=== PATIENT | female | born 1950 | race Caucasian/White ===

== ENCOUNTER → 2024-07-06 | Outpatient (CLI) | payer MEDICARE, MEDICAID, SELFPAY ==
[2024-07-05 15:31] LABS: Basophils % (Auto) 0 % (0-2.5); Eosinophils # (Auto) 0.1 Thou/mm3 (0.0-0.5); Eosinophils % (Auto) 1 % (0-10); Hematocrit 38.6 % (36.0-46.0); Immature Granulocytes % (Auto) 0 % (0-0); Immature Granulocytes Auto 0.02 Thou/mm3 (0.00-0.00); Lymphocytes # (Auto) 1.2 Thou/mm3 (1.0-4.8); Lymphocytes % (Auto) 18 % (10-50); Mean Corpuscular HGB Conc 33.7 g/dl (31.0-37.0); Mean Corpuscular Hemoglobin 29.1 pg (25.0-35.0); Mean Corpuscular Volume 87 fL (80-100); Monocytes # (Auto) 0.5 Thou/mm3 (0.0-0.8); Monocytes % (Auto) 8 % (0-12); Neutrophils # (Auto) 4.5 Thou/mm3 (1.8-7.7); Neutrophils % (Auto) 72 % (37-80); Nucleated Red Blood Cell % 0 /100 WBC (0); Platelet Count 225 Thou/mm3 (140-440); RDW Standard Deviation 40.7 fL (36.4-46.3); Red Blood Count 4.46 Miln/mm3 (4.00-5.20); White Blood Count 6.2 Thou/mm3 (3.6-11.0)
[2024-07-05 15:44] LABS: Partial Thromboplastin Time 24.5 Seconds (22.0-36.0); Prothrombin Time 10.9 Seconds (9.0-12.2)
--- NOTE | 2024-07-06 09:30 | XR_ITS ---
Examinations: Ultrasound-guided percutaneous breast biopsy, right breast 6:00 nodule Right breast sonography limited INDICATIONS: BI-RADS 4 suspicious nodule 6:00 position right breast on right breast sonogram February 04, 2024. Exam date and time: July 06, 2024 1002 hours. Informed consent provided. Technique: A timeout was completed verifying correct patient, procedure, site, positioning, and special equipment if applicable Informed consent provided. The patient was placed in a supine position for the breast biopsy. Sonographic images of the breast were performed for localization of the suspicious nodule The patient's breast was prepped and draped in sterile fashion. Maximum sterile barrier technique, hand hygiene, ultrasound sterile technique 1% lidocaine was used to anesthetize the skin and breast adjacent to the suspicious nodule. Utilizing ultrasonographic guidance, 8 core biopsies were obtained of the suspicious nodule utilizing an 18-gauge BioPince needle. The specimens appears satisfactory. US guided breast biopsy marker placement. Estimated blood loss 3 cc. The patient tolerated the procedure well and there were no complications. Impression: Successful ultrasound-guided percutaneous breast biopsy, right breast 6:00 nodule. Ultrasound guided breast biopsy marker placement.
--- NOTE | 2024-07-06 09:30 | XR_ITS ---
Examinations: Ultrasound-guided percutaneous breast biopsy, left breast 9:00 nodule Left breast sonography limited INDICATIONS: BI-RADS 4 suspicious mass 9:00 position left breast on left breast sonogram February 04, 2024. Exam date and time: July 06, 2024 1007 hours. Informed consent provided. Technique: A timeout was completed verifying correct patient, procedure, site, positioning, and special equipment if applicable Informed consent provided. The patient was placed in a supine position for the breast biopsy. Sonographic images of the breast were performed for localization of the suspicious nodule The patient's breast was prepped and draped in sterile fashion. Maximum sterile barrier technique, hand hygiene, ultrasound sterile technique 1% lidocaine was used to anesthetize the skin and breast adjacent to the suspicious nodule. Utilizing ultrasonographic guidance, 8 core biopsies were obtained of the suspicious nodule utilizing an 18-gauge BioPince needle. The specimens appears satisfactory. US guided breast biopsy marker placement. Estimated blood loss 3 cc. The patient tolerated the procedure well and there were no complications. Impression: Successful ultrasound-guided percutaneous breast biopsy, left breast 9:00 nodule. Ultrasound guided breast biopsy marker placement.
--- NOTE | 2024-07-06 09:30 | XR_ITS ---
Examinations: Ultrasound-guided percutaneous left axillary lymph node biopsy Left axillary sonography limited INDICATIONS: Suspicious left axillary lymph node on breast sonogram February 04, 2024 Exam date and time: July 06, 2024 1011 hours. Informed consent provided. Technique: A timeout was completed verifying correct patient, procedure, site, positioning, and special equipment if applicable Informed consent provided. The patient was placed in a supine position for the amy axillary biopsy. Sonographic images of the left axilla were performed for localization of the suspicious nodule The patient's breast was prepped and draped in sterile fashion. Maximum sterile barrier technique, hand hygiene, ultrasound sterile technique 1% lidocaine was used to anesthetize the skin and breast adjacent to the suspicious nodule. Utilizing ultrasonographic guidance, 8 core biopsies were obtained of the suspicious lymph node utilizing an 18-gauge BioPince needle. The specimens appears satisfactory. \ Estimated blood loss 3 cc. The patient tolerated the procedure well and there were no complications. Impression: Successful ultrasound-guided percutaneous left axillary lymph node biopsy .
== END | disposition home or self-care (01) ==
LOC: SDIM 09:01 → SIRX 09:50
PROVIDERS: Radiology Diagnostic Radiology; PCP Physician Assistant Medical; Referring Provider Physician Assistant Medical; Visit Provider Physician Assistant Medical
DX: C50.812 Malignant neoplasm of overlapping sites of left female breast (principal); C50.811 Malignant neoplasm of overlapping sites of right female breast; Z17.21 Progesterone receptor positive status; Z17.0 Estrogen receptor positive status [ER+]; Z01.812 Encounter for preprocedural laboratory examination
CPT/HCPCS: 19083; 19084 ×2; 36415; 85025; 85610; 85730; A4648

== ENCOUNTER → 2024-08-03 | Outpatient (CLI) | payer MEDICARE, MEDICAID, SELFPAY ==
--- NOTE | 2024-08-03 13:00 | XR_ITS ---
Examination: Bone densitometry Date and time of exam:August 03, 2024 1322 hours INDICATIONS: Menopause age 56 vitamin D 2 months Technique: Lumbar spine and hip total bone mineralization values of an calculated. Peak reference and age match control results have been displayed. Findings: Lumbar spine total bone mineralization is1.244 gm/cm2. This is 1.8 standard deviations above peak reference. This is 4.1 standard deviations above age-matched controls. Hip total bone mineralization is 0.900 gm/cm2 This is 0.3 standard deviations below peak reference. This is 1.3 standard deviations above age-matched controls Impression: There is normal mineralization based on lumbar spine measurements. There is osteopenia based on hip measurements Lumbar mineralization is increased 9.0% compared with February 22, 2020 Hip mineralization is decreased 7.7% compared with February 22, 2020
== END | disposition home or self-care (01) ==
PROVIDERS: Referring Provider Physician Assistant Medical; Visit Provider Physician Assistant Medical
DX: M85.89 Other specified disorders of bone density and structure, multiple sites (principal)
CPT/HCPCS: 77080

== ENCOUNTER 2024-08-05 12:52 | Outpatient (RCR) | payer MEDICARE, MEDICAID, SELFPAY ==
--- NOTE | 2024-08-05 14:07 | CTCCONSULT_ITS ---
[facility] [address] [place], [place] [address] Consultation Note Date: 08/05/2024 MR#: [id number] Name: KASHMIR STEWART : 1950 Dx: C50.212 Malignant neoplasm of upper-inner quadrant of left female breast Attending physician. Sierra Bender PA-C Reason for consultation. Patient with bilateral synchronous right and left breast CA referred to the cancer center. History of Present Illness: Patient is a 73-year-old lady with bilateral mammography 02/04/2024 revealing heterogeneous dense breast however suspicious mass noted in the right breast at 6:00 and in the 9:00 of the left breast. Biopsy of both sites July 06, 2024 revealed invasive ductal carcinoma 0.5 cm in the right and 0.7 cm on the left. There were both ER/VA positive and HER2/marium not overexpressed. Ultrasound biopsy of the left axilla was negative for malignancy. MRI of the breasts reportedly has been ordered for end of this month and patient now referred to the cancer treatment center. Past Medical History: Hypertension prior right knee surgery vascular surgery adult onset diabetes mellitus history of chickenpox bronchitis asthma Meds. Haloperidol 50 mg once a day Singulair 10 mg daily Paxil 20 mg daily Lipitor 10 mg Seroquel 300 mg Allergies to penicillin Family history. Denies knowledge of cancer in family. Social History: Patient retired disabled Review of Systems: Has experienced anxiety cold heat intolerance cough easy bruising hayfever allergy memory loss recent fever sleep problem unexplained weight loss or gain Physical Exam: General: Adequate nourished appearing lady no acute distress HEENT: Atraumatic no cephalic extraocular is intact no oral lesions no cervical or supraclavicular adenopathy CV: No discrete axillary nodes felt; no definite breast masses felt. ABD: Soft no organomegaly or tenderness EXT: No signs of clubbing or edema Assessment: 1. Synchronous bilateral breast CA, both T1 size receptor positive HER2/marium not overexpressed. 2. MRI breasts reportedly have been ordered and scheduled for later this month. 3. Will do genetic testing considering the bilateral breast CA; unknown if any family members ever had breast or any other cancers. 4. Will order PET scan 5. Scheduled to see Dr. Marin medical oncologist. 6. Thank you much for allowing me to evaluate this patient. Cc: Sierra Bender PA-C [facility] Electronically signed by: Jann Chase MD, MONICO 08/05/2024 2:05 PM
== END 2024-09-04 23:59 | disposition home or self-care (01) ==
LOC: SCTC 12:52
PROVIDERS: PCP Physician Assistant Medical; Referring Provider Physician Assistant Medical; Visit Provider Radiology Therapeutic Radiology
DX: C50.812 Malignant neoplasm of overlapping sites of left female breast (principal); C50.811 Malignant neoplasm of overlapping sites of right female breast; Z17.0 Estrogen receptor positive status [ER+]; Z17.21 Progesterone receptor positive status; Z17.32 Human epidermal growth factor receptor 2 negative status
CPT/HCPCS: 99213; G0463

== ENCOUNTER → 2024-08-12 | Outpatient (CLI) | payer MEDICARE, MEDICAID, SELFPAY ==
[2024-08-12 09:11] LABS: Misc Send Out* See Sep Rpt
== END | disposition home or self-care (01) ==
PROVIDERS: PCP Physician Assistant Medical; Referring Provider Radiology Therapeutic Radiology; Visit Provider Radiology Therapeutic Radiology
DX: C50.111 Malignant neoplasm of central portion of right female breast (principal); C50.212 Malignant neoplasm of upper-inner quadrant of left female breast

== ENCOUNTER 2024-09-13 08:32 | Outpatient (RCR) | payer MEDICARE, MEDICAID, SELFPAY ==
--- NOTE | 2024-09-19 22:00 | CTCCONSULT_ITS ---
Patient: KASHMIR CORDOVA : 1950 MR#: [id number] Page 2 of 3 CONSULTATION NOTE DATE OF CONSULTATION: 09/13/2024 NAME: KASHMIR CORDOVA ACCOUNT: [id number] : 1950 AGE: 74 REFERRING PHYSICIAN: Romario Marin MD PRIMARY PHYSICIAN: Romario Marin MD [place], a female patient with bilateral breast cancer diagnosed in January 2024, presented for follow-up without having received treatment yet. Biopsies confirmed invasive ductal carcinoma in both breasts (right: 0.5cm, ER+, HER2 1+; left: 0.7cm, ER+, HER2 0) with negative lymph nodes. The patient reported short- term memory issues and takes unspecified mental health medication nightly. Treatment plan includes immediate hormone-blocking medication, repeat ultrasound to reassess tumor sizes, referral to Dr. King for bilateral breast-conserving surgery, and post-surgical radiation therapy. Subjective: Chief Complaint Follow-up for bilateral breast cancer diagnosed in January 2024, no treatment received yet History of Present Illness Kashmir Cordova presents to the oncology clinic for follow-up of bilateral breast cancer diagnosed in January 2024. The patient has not yet undergone any surgical intervention for her condition. In January 2024, a mammogram revealed suspicious findings for malignancy in both breasts. Subsequent biopsies confirmed invasive ductal carcinoma in both breasts: a 0.5 cm tumor in the right breast and a 0.7 cm tumor in the left breast. Both tumors were estrogen receptor-positive (ER+), but the right breast tumor was HER2 1+ while the left breast tumor was HER2 0. Lymph node biopsies on both sides were negative. The patient expresses a preference for breast-conserving surgery followed by radiation therapy rather than mastectomy. She reports some issues with short- term memory, stating, When I can remember, within a few minutes later, I forget. The patient takes medication at night for mental health and sees a doctor in [place] for this condition. No information was provided about changes in overall health status, current symptoms, or impact on daily functioning since the initial diagnosis. The patient has not yet started any cancer treatment, and there is concern that the tumors may have grown in the six months since diagnosis. Medications and Supplements - Unspecified mental health medication - Taken at night Review of Systems Neurological: Positive for short-term memory issues. Psychiatric: Positive for taking medication for mental health. Other: Positive for hot flashes. Objective: Laboratory, Imaging, and Diagnostic Test Results - Date: January 2024 - Mammogram: Suspicious for malignancy in left and right breast - Breast ultrasound with biopsy: - Right breast: Invasive ductal carcinoma, 0.5 cm, ER-positive, HER2 1+ - Left breast: Invasive ductal carcinoma, 0.7 cm, ER-positive, HER2 0 - Lymph node biopsies: Negative bilaterally Assessment and Plan: Kashmir Cordova, female patient, presents with bilateral breast cancer diagnosed in January 2024, now requiring treatment initiation and surgical intervention. Bilateral breast cancer Assessment: Patient was diagnosed with bilateral breast cancer in January 2024 via mammogram and subsequent biopsies. Right breast shows a 0.5 cm invasive ductal carcinoma, ER-positive, HER2 1+. Left breast has a 0.7 cm ER-positive tumor, HER2 negative. Lymph node biopsies were negative bilaterally. These are separate primary cancers, both small but potentially grown since January due to delayed treatment initiation. Plan: - Start hormone-blocking medication immediately to prevent further tumor growth - Repeat breast ultrasound bilaterally to reassess current tumor sizes - Refer to Dr. King, breast surgeon in [place], for bilateral breast-conserving surgery - Plan for post-surgical radiation therapy to both breasts - Educate patient on medication: - Take one tablet daily with water - If dose missed, resume next day - Potential side effects: hot flashes, menopause-like symptoms (may last a few days) - Follow-up appointment in 3-4 weeks - Anticipate radiation therapy to begin 3 weeks post-surgery Memory issues Assessment: Patient reports difficulty with short-term memory, stating When I can remember, within a few minutes later, I forget. This may impact medication adherence and retention of medical information. Plan: - Note: Patient takes unspecified pills at night for mental health - Patient sees a doctor in [place] for mental health management RETURN TO CLINIC: 4 weeks BILLING AND COMPLIANCE: I reviewed external records from providers outside my specialty as summarized above. I spent a total of 50 minutes on this patient?s care on the day of their visit excluding time spent related to any billed procedures. This time includes time spent with the patient as well as time spent documenting in the medical record, reviewing patients records and tests, obtaining history, placing orders, communicating with other healthcare professionals, counseling the patient, family or caregiver, and/or care coordination for the diagnoses above. Electronically Signed by: Romario Marin MD T: 9:58 PM CC: PCP: oRmario Marin Referring: Romario Marin This document was completed utilizing speech recognition software. Grammatical errors, random word insertions, pronoun errors, and incomplete sentences are an occasional consequence of this system due to software limitations, ambient noise, and hardware issues. Any formal questions or concerns about the content, text or information contained within the body of this dictation should be directly addressed to the provider for clarification.
== END 2024-10-04 23:59 | disposition home or self-care (01) ==
LOC: SCTC 08:32
PROVIDERS: PCP Physician Assistant Medical; Referring Provider Internal Medicine Hematology & Oncology; Visit Provider Internal Medicine Hematology & Oncology
DX: C50.811 Malignant neoplasm of overlapping sites of right female breast (principal); C50.812 Malignant neoplasm of overlapping sites of left female breast; Z17.0 Estrogen receptor positive status [ER+]; Z17.21 Progesterone receptor positive status; Z17.32 Human epidermal growth factor receptor 2 negative status; R41.3 Other amnesia
CPT/HCPCS: 99213; G0463

== ENCOUNTER → 2024-09-14 | Outpatient (CLI) | payer MEDICARE, MEDICAID, SELFPAY ==
--- NOTE | 2024-09-14 10:15 | XR_ITS ---
EXAMINATION: PET/CT FUSION SKULL TO THIGH EXAM DATE AND TIME: September 14, 2024 1108 hours INDICATIONS: Diagnosis breast cancer, staging prior to treatment, biopsy 9:00 nodule left breast on July 06, 2024 CTDI:vol (mGy) 6.55 DLP: (mGycm) 598.28 PROCEDURE: 16.6 mCi FDG was administered intravenously To allow for distribution and uptake of radiotracer, the patient was allowed to rest quietly in a shielded room. Imaging was performed on an integrated 16-slice PET/CT scanner, with scanning from the skull base to the mid thigh. Serum blood glucose at the time of the injection was measured 116 mg/dL. CT scanning was performed without oral or intravenous contrast material. FINDINGS: Head and Neck: There is no amy hypermetabolism in the neck. The visualized portions of the brain are normal in appearance on CT. Chest: Weakly hypermetabolic 8mm nodule with breast marker left breast axial image 115 12 mm non hypermetabolic left axillary lymph node Abdomen and Pelvis: There is no amy hypermetabolism in retroperitoneal or pelvic chains. The spleen is normal in size and FDG avidity. Musculoskeletal: Marrow uptake is within normal range. IMPRESSION: Weakly hypermetabolic 8mm nodule with breast biopsy marker left breast 12 mm non hypermetabolic left axillary lymph node
== END | disposition home or self-care (01) ==
LOC: CDIM 09:57
PROVIDERS: Referring Provider Radiology Therapeutic Radiology; Visit Provider Radiology Therapeutic Radiology
DX: C50.212 Malignant neoplasm of upper-inner quadrant of left female breast (principal); C50.111 Malignant neoplasm of central portion of right female breast
CPT/HCPCS: 78815; A9552

== ENCOUNTER → 2024-09-15 | Outpatient (CLI) | payer MEDICARE, MEDICAID, SELFPAY ==
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
--- NOTE | 2024-09-15 12:30 | XR_ITS ---
MRI shoulder, left, without contrast. Date and time: September 15, 2024 1530 hours Technique: Multiple axial, sagittal and coronal sections of the shoulder have been obtained. Siemens high-resolution 1.5 Steph MRI scanner is utilized. Axial fat-suppressed sections, TR 2350, TE 18 T2-weighted coronal fat-saturated images, TR 3500, TE 7100 T1-weighted coronal images, TR 500, TE 15 T2-weighted sagittal fat-saturated images, TR 3500, TE 57 T1-weighted sagittal sections, TR 504, TE 13. Findings: Supraspinatus tendon insertion is intact. Infraspinatus tendon insertion is intact. Subscapularis insertion is intact. Subscapularis bursa is not seen. Long head of the biceps is in the bicipital groove. No definite tear of the biceps superior labral anchor is seen. Retraction of the musculotendinous junction of the rotator cuff is not seen . Tendinosis pattern is moderate. Distance between the acromium and humeral head is obtained mm Atrophy of the supraspinatus muscle is severe. Atrophy of the infraspinatus muscle is moderate. Sagittal sections demonstrate a horizontal acromion. Acromioclavicular joint demonstrates mild osteoarthritis . Osacromiale is not identified. Advanced osteoarthritis glenohumeral joint with significant shoulder effusion. Fraying and irregularity anterior superior posterior labral margins Bony glenoid fossa on the sagittal sections does not demonstrate osseous defect. Occult fracture or area of avascular necrosis is not seen. Acromioclavicular joint separation is not visible. Defect in the posterolateral margin of the humeral head is not seen Impression: Advanced osteoarthritis glenohumeral joint Fraying and irregularity anterior superior posterior labral margins
== END | disposition home or self-care (01) ==
LOC: SMRI 12:01
PROVIDERS: PCP Physician Assistant Medical; Referring Provider Physician Assistant Medical; Visit Provider Physician Assistant Medical
DX: M19.012 Primary osteoarthritis, left shoulder (principal); Z01.818 Encounter for other preprocedural examination; Z87.828 Personal history of other (healed) physical injury and trauma
CPT/HCPCS: 70250; 73221

== ENCOUNTER → 2024-09-24 | Outpatient (CLI) | payer MEDICARE, MEDICAID, SELFPAY ==
[2024-09-24 16:49] LABS: Basophils % (Auto) 0 % (0-2.5); Eosinophils # (Auto) 0.1 Thou/mm3 (0.0-0.5); Eosinophils % (Auto) 2 % (0-10); Hematocrit 39.3 % (36.0-46.0); Immature Granulocytes % (Auto) 0 % (0-0); Immature Granulocytes Auto 0.01 Thou/mm3 (0.00-0.00); Lymphocytes # (Auto) 1.5 Thou/mm3 (1.0-4.8); Lymphocytes % (Auto) 22 % (10-50); Mean Corpuscular HGB Conc 33.1 g/dl (31.0-37.0); Mean Corpuscular Hemoglobin 28.9 pg (25.0-35.0); Mean Corpuscular Volume 87 fL (80-100); Monocytes # (Auto) 0.6 Thou/mm3 (0.0-0.8); Monocytes % (Auto) 9 % (0-12); Neutrophils # (Auto) 4.6 Thou/mm3 (1.8-7.7); Neutrophils % (Auto) 68 % (37-80); Nucleated Red Blood Cell % 0 /100 WBC (0); Platelet Count 253 Thou/mm3 (140-440); RDW Standard Deviation 39.9 fL (36.4-46.3); White Blood Count 6.8 Thou/mm3 (3.6-11.0)
[2024-09-24 17:09] LABS: Alanine Aminotransferase 20 U/L (10-49); Albumin, Serum 4.1 gm/dL (3.4-4.8); Albumin/Globulin Ratio 1.8 (1.2-2.2); Alkaline Phosphatase 89 U/L (46-116); Anion Gap 6 (7-16); Aspartate Amino Transferase 18 U/L (0-34); BUN/Creatinine Ratio 9 Ratio (12-20); Bilirubin,Total 0.6 mg/dL (0.3-1.2); Blood Urea Nitrogen 7 mg/dL (9-23); Calcium 9.5 mg/dL (8.3-10.6); Calcium (Corrected) 9.5 mg/dL (8.5-10.1); Carbon Dioxide 29.1 mMol/L (20.0-31.0); Chloride 104 mMol/L (98-107); Creatinine (Component) 0.8 mg/dL (0.6-1.3); Globulin 2.3 gm/dL (2.3-3.5); Glucose 94 mg/dL (74-106); Osmolality,Calculated 275 (275-295); Potassium 3.8 mMol/L (3.4-5.1); Sodium 139 mMol/L (136-145); Total Protein 6.4 gm/dL (5.7-8.2); eGFR > 60 See Note
== END | disposition home or self-care (01) ==
LOC: COPL 15:21 → SCTO 15:26
PROVIDERS: PCP Physician Assistant Medical; Referring Provider Internal Medicine Hematology & Oncology; Visit Provider Internal Medicine Hematology & Oncology
DX: C50.212 Malignant neoplasm of upper-inner quadrant of left female breast (principal); C50.111 Malignant neoplasm of central portion of right female breast
CPT/HCPCS: 36415; 80053; 85025

== ENCOUNTER → 2024-09-29 | Outpatient (CLI) | payer MEDICARE, MEDICAID, SELFPAY ==
[2024-09-29 09:46] LABS: Misc Send Out* See Sep Rpt
== END | disposition home or self-care (01) ==
PROVIDERS: PCP Physician Assistant Medical; Referring Provider Radiology Therapeutic Radiology; Visit Provider Radiology Therapeutic Radiology
DX: C50.212 Malignant neoplasm of upper-inner quadrant of left female breast (principal); C50.111 Malignant neoplasm of central portion of right female breast

== ENCOUNTER 2024-10-25 10:43 | Outpatient (RCR) | payer MEDICARE, MEDICAID, SELFPAY | END 2024-11-04 23:59 | disposition home or self-care (01) | LOC: SCTC 10:43 | PROVIDERS: PCP Physician Assistant Medical; Referring Provider Physician Assistant Medical; Visit Provider Internal Medicine Hematology & Oncology | DX: C50.812 Malignant neoplasm of overlapping sites of left female breast (principal); C50.811 Malignant neoplasm of overlapping sites of right female breast; Z17.0 Estrogen receptor positive status [ER+]; Z17.21 Progesterone receptor positive status; Z17.32 Human epidermal growth factor receptor 2 negative status; R41.3 Other amnesia | CPT/HCPCS: 99424; 99425 ==

== ENCOUNTER → 2024-10-29 | Outpatient (CLI) | payer MEDICARE, MEDICAID, SELFPAY ==
[2024-10-29 17:34] LABS: Basophils # (Auto) 0.0 Thou/mm3 (0.0-0.2); Basophils % (Auto) 0 % (0-2.5); Eosinophils # (Auto) 0.0 Thou/mm3 (0.0-0.5); Eosinophils % (Auto) 0 % (0-10); Hematocrit 39.2 % (36.0-46.0); Hemoglobin 12.8 g/dL (12.0-16.0); Immature Granulocytes Auto 0.03 Thou/mm3 (0.00-0.00); Lymphocytes # (Auto) 1.3 Thou/mm3 (1.0-4.8); Lymphocytes % (Auto) 13 % (10-50); Mean Corpuscular HGB Conc 32.7 g/dl (31.0-37.0); Mean Corpuscular Hemoglobin 28.6 pg (25.0-35.0); Mean Corpuscular Volume 88 fL (80-100); Monocytes # (Auto) 0.9 Thou/mm3 (0.0-0.8); Monocytes % (Auto) 9 % (0-12); Neutrophils # (Auto) 7.9 Thou/mm3 (1.8-7.7); Neutrophils % (Auto) 78 % (37-80); Nucleated Red Blood Cell # 0.00 Thou/mm3 (0.00-0.00); Nucleated Red Blood Cell % 0 /100 WBC (0); Platelet Count 259 Thou/mm3 (140-440); RDW Standard Deviation 40.4 fL (36.4-46.3); Red Blood Count 4.47 Miln/mm3 (4.00-5.20); White Blood Count 10.2 Thou/mm3 (3.6-11.0)
[2024-10-29 17:55] LABS: Alanine Aminotransferase 25 U/L (10-49); Albumin, Serum 3.7 gm/dL (3.4-4.8); Albumin/Globulin Ratio 1.8 (1.2-2.2); Alkaline Phosphatase 82 U/L (46-116); Anion Gap 8 (7-16); Aspartate Amino Transferase 22 U/L (0-34); BUN/Creatinine Ratio 22 Ratio (12-20); Bilirubin,Total 0.5 mg/dL (0.3-1.2); Blood Urea Nitrogen 24 mg/dL (9-23); Calcium 9.6 mg/dL (8.3-10.6); Calcium (Corrected) 9.8 mg/dL (8.5-10.1); Carbon Dioxide 30.3 mMol/L (20.0-31.0); Chloride 103 mMol/L (98-107); Creatinine (Component) 1.1 mg/dL (0.6-1.3); Globulin 2.1 gm/dL (2.3-3.5); Glucose 155 mg/dL (74-106); Osmolality,Calculated 288 (275-295); Potassium 4.2 mMol/L (3.4-5.1); Sodium 141 mMol/L (136-145); Total Protein 5.8 gm/dL (5.7-8.2); eGFR 53 See Note
== END | disposition home or self-care (01) ==
LOC: SCTO 16:35
PROVIDERS: PCP Physician Assistant Medical; Referring Provider Internal Medicine Hematology & Oncology; Visit Provider Internal Medicine Hematology & Oncology
DX: C50.212 Malignant neoplasm of upper-inner quadrant of left female breast (principal); C50.111 Malignant neoplasm of central portion of right female breast
CPT/HCPCS: 36415; 80053; 85025

== ENCOUNTER 2024-12-09 13:49 | Outpatient (RCR) | payer MEDICARE, MEDICAID, SELFPAY ==
--- NOTE | 2024-12-13 01:07 | CTCFLWUP_ITS ---
Patient: KASHMIR STEWART : 1950 Page 4 of 4 FOLLOW UP NOTE DATE OF SERVICE: 12/09/2024 NAME: KASHMIR STEWART ACCOUNT: [id number] : 1950 AGE: 74 INTERVAL HISTORY: Patient underwent surgery on 11/29/2024. Patient had bilateral mastectomy. Here for follow-up ONCOLOGY HISTORY: DIAGNOSIS: Malignant neoplasm of upper-inner quadrant of left female breast [ICD10] C50.212; Malignant neoplasm of central portion of right female breast [ICD10] C50.111 DATE OF DIAGNOSIS: 07/25/2024 Initially found to have cancer in both breast but later Only in left breast cancer STAGE/TNM: Stage I T1 cN0 M0 in the left breast ER positive HER2 negative Right breast no residual tumor T0 N0 M0 initially found to be ER positive HER2 negative TREATMENT HISTORY: Care?Plan Start?Date Cycle Day Intent HISTORY OF PRESENT ILLNESS: [place], a female patient with bilateral breast cancer diagnosed in January 2024, presented for follow-up without having received treatment yet. Biopsies confirmed invasive ductal carcinoma in both breasts (right: 0.5cm, ER+, HER2 1+; left: 0.7cm, ER+, HER2 0) with negative lymph nodes. The patient reported short-term memory issues and takes unspecified mental health medication nightly. Treatment plan includes immediate hormone-blocking medication, and surgery with Dr. King. Patient had surgery with bilateral mastectomy and was found to have residual tumor only in the left breast and no cancer was found in the right breast. Lymph nodes in both the right and left axilla were negative OTHER MEDICAL HISTORY/CONDITIONS: Right and left breast invasive ductal carcinoma - dx 07/06/24 HTN Hyperlipidemia Depression T?and?A?-?as?child FAMILY HISTORY: Patient?denies?family?cancer?history. 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 Arimidex - 1 mg 1 tab Daily 2. haloperidoL - 5 mg 3 tab Daily 3. Lipitor - 10 mg 1 tab Daily 4. Paxil - 20 mg 1 tab Daily 5. Seroquel XR - 200 mg 2 tab Daily 6. Singulair - 10 mg 1 tab Daily Medications Last Reconciled by Juliana Gutierrez MA on 12/09/2024 ALLERGIES: Penicillins REVIEW OF SYSTEMS: A complete 14-point review of systems was performed and is negative except as noted in interval history. PHYSICAL EXAMINATION: VITAL SIGNS: Temperature?98, B/P?147/86, Oxygen?Saturation?98% Weight?204?lbs PAIN: 0 - No pain ECOG Performance Status: 0 - Asymptomatic and fully active GENERAL APPEARANCE: Appears well, in no apparent distress, appropriately interactive. HEENT: Normocephalic, no temporal wasting, normal conjunctiva, no scleral icterus, normal hearing, lips without lesions, neck normal range of motion. CARDIOVASCULAR: Not assessed. PULMONARY: Normal respiratory effort, no respiratory distress or use of accessory muscles, speaking in full sentences, no tachypnea. EXTREMITIES: No pedal edema or cyanosis. SKIN: Normal skin appearance. NEUROLOGIC: Alert and oriented x4. PSHYCHIATRIC: Appropriate affect, mood normal, behavior normal, intact thought and speech. LABORATORY DATA: I have personally reviewed and interpreted each of the patient?s relevant lab tests, abnormal findings are below: Date 09/24/24 10/29/24 ??WHITE?BLOOD?COUNT?(Thou/mm3) 6.8 10.2 ??RED?BLOOD?COUNT?(Miln/mm3) 4.50 4.47 ??HEMOGLOBIN?(gm/dl) 13.0 12.8 ??HEMATOCRIT?(%) 39.3 39.2 ??PLATELET?COUNT?(Thou/mm3) 253 259 ??NEUTROPHILS?%,?AUTO?(%) 68 78 ??LYMPH?%,?AUTO?(%) 22 13 ??NEUTROPHILS,?AUTO?(Thou/mm3) 4.6 7.9?H ??GLUCOSE,RANDOM?(mg/dL) 94 155?H ??BLOOD?UREA?NITROGEN?(mg/dL) 7?L 24?H ??CREATININE?(mg/dL) 0.80 1.10 ??SODIUM?(mmol/L) 139 141 ??POTASSIUM?(mmol/L) 3.8 4.2 ??CHLORIDE?(mmol/L) 104 103 ??CrCl?(CandG)?(ml/min) 69.52 50.56 ??AST/SGOT?(Unit/L) 18 22 ??ALT/SGPT?(Unit/L) 20 25 ??ALKALINE?PHOSPHATASE?(Unit/L) 89 82 ??BILIRUBIN,?TOTAL?(mg/dL) 0.6 0.5 ??PROTEIN?TOTAL?(gm/dl) 6.4 5.8 ??ALBUMIN,?SERUM?(gm/dl) 4.1 3.7 ??GLOBULIN?(gm/dl) 2.3 2.1?L ??ALBUMIN/GLOBULIN?RATIO 1.8 1.8 ??CALCIUM,?SERUM?(mg/dL) 9.5 9.6 ??CALCIUM?SERUM?(CORRECTED)?(mg/dL) 9.5 9.8 ASSESSMENT/PLAN: Patient was diagnosed with bilateral breast cancer in January 2024 via mammogram and subsequent biopsies. Right breast shows a 0.5 cm invasive ductal carcinoma, ER-positive, HER2 1+. Left breast has a 0.7 cm ER-positive tumor, HER2 negative. Lymph node biopsies were negative bilaterally. These are separate primary cancers, both small but potentially grown since January due to delayed treatment initiation. Patient has been on anastrozole and doing well Patient had bilateral mastectomy and found to have residual tumor only in the left breast Continue hormone blocking therapy for at least 5 to 7 years No role of chemotherapy Patient have no involvement of lymph node and tumor was very small so no role of radiation Continue anastrozole memory issues Assessment: Patient reports difficulty with short-term memory, stating When I can remember, within a few minutes later, I forget. This may impact medication adherence and retention of medical information. Plan: - Note: Patient takes unspecified pills at night for mental health - Patient sees a doctor in [place] for mental health management ORDERS: Order # Description [id number] Follow Up 6 Month + Comprehensive Metabolic Panel - 12 + CBC with Auto Diff + CA 15-3 + RETURN TO CLINIC: I reviewed the diagnosis, prognosis, and recommended treatment/procedure options with the patient (and/or their legal applications sales representative), including the potential benefits, risks, side effects and alternative therapies. We also discussed the option of no treatment and the possibility of clinical trial participation, if applicable. All questions were addressed, and they demonstrated understanding. They provided informed consent to proceed with the proposed plan of care. BILLING AND COMPLIANCE: I reviewed external records from providers outside my specialty as summarized above. I spent a total of 50 minutes on this patient?s care on the day of their visit excluding time spent related to any billed procedures. This time includes time spent with the patient as well as time spent documenting in the medical record, reviewing patients records and tests, obtaining history, placing orders, communicating with other healthcare professionals, counseling the patient, family or caregiver, and/or care coordination for the diagnoses above. Electronically Signed by: {Object.Sanct_ID*PnP.NameFL@M}, {Object.Sanct_ID*PnP.Suffix@U} D: {Object.Sanct_Date} T: {Object.Sanct_Time} CC: PCP: Sierra Bender Referring: Sierra Bender This document was completed utilizing speech recognition software. Grammatical errors, random word insertions, pronoun errors, and incomplete sentences are an occasional consequence of this system due to software limitations, ambient noise, and hardware issues. Any formal questions or concerns about the content, text or information contained within the body of this dictation should be directly addressed to the provider for clarification.
== END 2025-01-04 23:59 | disposition home or self-care (01) ==
LOC: SCTC 13:49
PROVIDERS: PCP Physician Assistant Medical; Referring Provider Physician Assistant Medical; Visit Provider Internal Medicine Hematology & Oncology
DX: C50.812 Malignant neoplasm of overlapping sites of left female breast (principal); C50.811 Malignant neoplasm of overlapping sites of right female breast; Z17.0 Estrogen receptor positive status [ER+]; Z17.21 Progesterone receptor positive status; Z17.32 Human epidermal growth factor receptor 2 negative status; Z90.13 Acquired absence of bilateral breasts and nipples; Z79.811 Long term (current) use of aromatase inhibitors
CPT/HCPCS: 99212; G0463

== ENCOUNTER → 2025-01-28 | Outpatient (CLI) | payer MEDICARE, MEDICAID, SELFPAY ==
[2025-01-28 14:44] LABS: Basophils # (Auto) 0.0 Thou/mm3 (0.0-0.2); Basophils % (Auto) 1 % (0-2.5); Eosinophils # (Auto) 0.1 Thou/mm3 (0.0-0.5); Eosinophils % (Auto) 3 % (0-10); Hematocrit 37.9 % (36.0-46.0); Hemoglobin 12.6 g/dL (12.0-16.0); Immature Granulocytes Auto 0.01 Thou/mm3 (0.00-0.00); Lymphocytes # (Auto) 1.0 Thou/mm3 (1.0-4.8); Lymphocytes % (Auto) 24 % (10-50); Mean Corpuscular HGB Conc 33.2 g/dl (31.0-37.0); Mean Corpuscular Hemoglobin 29.1 pg (25.0-35.0); Mean Corpuscular Volume 88 fL (80-100); Monocytes # (Auto) 0.5 Thou/mm3 (0.0-0.8); Monocytes % (Auto) 12 % (0-12); Neutrophils # (Auto) 2.6 Thou/mm3 (1.8-7.7); Neutrophils % (Auto) 60 % (37-80); Nucleated Red Blood Cell # 0.00 Thou/mm3 (0.00-0.00); Nucleated Red Blood Cell % 0 /100 WBC (0); Platelet Count 215 Thou/mm3 (140-440); RDW Standard Deviation 41.1 fL (36.4-46.3); Red Blood Count 4.33 Miln/mm3 (4.00-5.20); White Blood Count 4.3 Thou/mm3 (3.6-11.0)
[2025-01-28 14:56] LABS: Alanine Aminotransferase 20 U/L (10-49); Albumin, Serum 4.2 gm/dL (3.4-4.8); Albumin/Globulin Ratio 2.1 (1.2-2.2); Alkaline Phosphatase 117 U/L (46-116); Anion Gap 8 (7-16); Aspartate Amino Transferase 17 U/L (0-34); BUN/Creatinine Ratio 14 Ratio (12-20); Bilirubin,Total 0.4 mg/dL (0.3-1.2); Blood Urea Nitrogen 11 mg/dL (9-23); Calcium 9.4 mg/dL (8.3-10.6); Calcium (Corrected) 9.4 mg/dL (8.5-10.1); Carbon Dioxide 29.0 mMol/L (20.0-31.0); Chloride 103 mMol/L (98-107); Creatinine (Component) 0.8 mg/dL (0.6-1.3); Globulin 2.0 gm/dL (2.3-3.5); Glucose 150 mg/dL (74-106); Osmolality,Calculated 281 (275-295); Potassium 4.2 mMol/L (3.4-5.1); Sodium 140 mMol/L (136-145); Total Protein 6.2 gm/dL (5.7-8.2); eGFR > 60 See Note
[2025-01-28 15:13] LABS: CA 15-3 14.1 U/mL (<32.4)
== END | disposition home or self-care (01) ==
LOC: SCTO 13:35
PROVIDERS: PCP Physician Assistant Medical; Referring Provider Internal Medicine Hematology & Oncology; Visit Provider Internal Medicine Hematology & Oncology
DX: C50.212 Malignant neoplasm of upper-inner quadrant of left female breast (principal); C50.111 Malignant neoplasm of central portion of right female breast
CPT/HCPCS: 36415; 80053; 85025; 86300